=== PATIENT | male | born 1955 | race Caucasian/White ===

== ENCOUNTER 2024-04-30 06:53 | Day surgery (SDC) | payer BC ==
[~2024-04-30] VITALS: Ht 175.3 cm; Wt 61.2 kg
[2024-04-30] MEDS ORDERED: MEPERIDINE 100 MG INJ. 100 MG/ML VIAL ONE (07:48)
[2024-04-30] MEDS ORDERED: SIMETHICONE 40 MG/0.6 ML ML ONE (07:48)
[2024-04-30] MEDS ORDERED: MIDAZOLAM HCL 5 MG/5 ML VIAL ONE (07:49)
[2024-04-30 08:00] VITALS: O2SAT 97
[2024-04-30 12:28] VITALS: BP_SYST 127; PULSE 73; RESP 18
== END 2024-04-30 09:40 | disposition home or self-care (01) ==
LOC: SDS 06:53 → SMU 06:59 → SDS 09:40
PROVIDERS: ATTEND Internal Medicine Gastroenterology
DX: K74.60 Unspecified cirrhosis of liver (principal); B96.81 Helicobacter pylori [H. pylori] as the cause of diseases classified elsewhere; K29.50 Unspecified chronic gastritis without bleeding; K76.6 Portal hypertension; K31.89 Other diseases of stomach and duodenum; K29.80 Duodenitis without bleeding; I12.0 Hypertensive chronic kidney disease with stage 5 chronic kidney disease or end stage renal disease; E11.22 Type 2 diabetes mellitus with diabetic chronic kidney disease; N18.6 End stage renal disease; Z98.890 Other specified postprocedural states; Z79.899 Other long term (current) drug therapy
CPT/HCPCS: 43239; 87081; 36415; 82948; 88305; 88312; 88313; G0378; J2250; J2175